=== PATIENT | male | born 1965 | race Hispanic/Latino ===

== ENCOUNTER 2024-01-26 18:22 | Inpatient (IN) | payer OTHER ==
[~2024-01-26] VITALS: Ht 177.8 cm; Wt 93.8 kg
[2024-01-26 18:57] LABS: HEMATOCRIT 47.4 % (42-54); MEAN CORPUSCULAR HEMOGLOBIN 28.2 pg (27.0-33.0); MEAN CORPUSCULAR HGB CONC 32.9 g/dL (32.0-36.0); MEAN CORPUSCULAR VOLUME 85.6 fL (79-99); RED BLOOD CELL COUNT(AUTO) 5.54 MIL/uL (4.50-6.20); RED CELL DISTRIBUTION WIDTH 12.2 % (11.0-15.5); WHITE BLOOD COUNT (AUTO) 9.2 K/uL (4.8-10.8)
[2024-01-26 19:16] LABS: ALBUMIN 3.5 g/dL (3.5-5.0); BILIRUBIN,TOTAL 0.2 mg/dL (0.2-1.0); CREATININE 1.3 mg/dL (0.5-1.3); POTASSIUM 3.9 mmol/L (3.5-5.1); TOTAL PROTEIN, SERUM 7.4 g/dL (6.0-8.3)
[2024-01-26 20:35] LABS: INR <= 0.93 (0.85-1.15); PROTHROMBIN TIME 10.9 SEC (9.6-11.6)
[2024-01-26 20:36] LABS: PARTIAL THROMBOPLASTIN TIME 28.1 SEC (26.3-35.5)
[2024-01-26] MEDS: ASPIRIN 325MG TAB PO ONE (22:25)
[2024-01-26] MEDS: 0.9%NACL 1000ML 1,000 ML IV ONE (22:25)
[2024-01-26] MEDS: INSULIN HUMULIN R 100 UNIT/ML 3ML IV ONE (22:28)
[2024-01-26] MEDS ORDERED: DEXTROSE 50%-WATER 50 ML DISP.SYRIN IV PRN (23:00)
[2024-01-26] MEDS ORDERED: MAGNESIUM 2GM PREMIX 50ML 50 ML IV PRN (23:00)
[2024-01-26] MEDS ORDERED: KCL 20 MEQ ERTAB PO PRN (23:00)
[2024-01-26] MEDS ORDERED: NITROGLYCERIN 0.4 MG SL TAB SL PRN (23:00)
[2024-01-26] MEDS ORDERED: ONDANSETRON 4MG INJ IV PRN (23:00)
[2024-01-26] MEDS ORDERED: POTASSIUM CHLORIDE 10% ELIXIR 20 MEQ/15 ML UDCUP PO PRN (23:00)
[2024-01-26] MEDS ORDERED: GLUCAGON 1MG KIT 1 MG ML IM PRN (23:00)
[2024-01-26] MEDS ORDERED: POTASSIUM CHLORIDE 20MEQ/100ML 100 ML IV PRN (23:00)
[2024-01-26] MEDS: DILTIAZEM 25MG INJ IVP ONE (23:51)
[2024-01-26] MEDS: 0.9%NACL 1000ML 1,000 ML IV SCH (23:51)
[2024-01-26] MEDS: METOPROLOL SUCCINATE 25 MG TAB.SR.24H PO ONE (23:51)
[2024-01-27] VITALS (10 sets, daily range): BP systolic 99–108; BP diastolic 52–69; PULSE 45–93; RESP 16–20; O2SAT 97–99
[2024-01-27 03:58] LABS: BASOPHILS # (AUTO) 0.03 K/uL (0.00-0.20); BASOPHILS % (AUTO) 0.3 % (0.0-5.0); EOSINOPHILS # (AUTO) 0.25 K/uL (0.00-0.70); EOSINOPHILS % (AUTO) 2.6 % (0.0-8.0); HEMATOCRIT 43.8 % (42-54); IMMATURE GRANULOCYTE ABSOLUTE 0.04 K/uL (0-1); LYMPHOCYTES # (AUTO) 2.5 K/uL (1.0-4.8); LYMPHOCYTES % (AUTO) 26.3 % (21.0-51.0); MEAN CORPUSCULAR HEMOGLOBIN 27.9 pg (27.0-33.0); MEAN CORPUSCULAR HGB CONC 32.9 g/dL (32.0-36.0); MEAN CORPUSCULAR VOLUME 84.7 fL (79-99); MONOCYTES # (AUTO) 0.8 K/uL (0.1-1.0); MONOCYTES % (AUTO) 8.7 % (3.0-13.0); NEUTROPHILS % (AUTO) 61.7 % (40.0-77.0); PLATELET COUNT (AUTO) 270 K/uL (130-400); RED BLOOD CELL COUNT(AUTO) 5.17 MIL/uL (4.50-6.20); RED CELL DISTRIBUTION WIDTH 12.4 % (11.0-15.5); WHITE BLOOD COUNT (AUTO) 9.7 K/uL (4.8-10.8)
[2024-01-27 04:20] LABS: ALBUMIN 3.2 g/dL (3.5-5.0); BILIRUBIN,TOTAL 0.4 mg/dL (0.2-1.0); POTASSIUM 4.5 mmol/L (3.5-5.1); THYROID STIMULATING HORMONE 1.65 uIU/mL (0.36-3.74); TOTAL PROTEIN, SERUM 6.6 g/dL (6.0-8.3)
[2024-01-27 05:55] LABS: AMPHET/METH SCREEN,URINE NEGATIVE (NEGATIVE); BARBITURATE SCREEN, URINE NEGATIVE (NEGATIVE); BENZODIAZEPINES SCREEN,URINE NEGATIVE (NEGATIVE); CANNABINOID SCREEN,URINE NEGATIVE (NEGATIVE); COCAINE SCREEN,URINE POSITIVE (NEGATIVE); OPIATE SCREEN,URINE NEGATIVE (NEGATIVE); PHENCYCLIDINE SCREEN,URINE NEGATIVE (NEGATIVE)
[2024-01-27 06:07] LABS: HEMOGLOBIN A1C 12.6 % (4.0-6.0)
[2024-01-27] MEDS: INSULIN HUMULIN R 100 UNIT/ML 3ML SQ SCH (06:34)
[2024-01-27] MEDS: FAMOTIDINE 20MG TAB PO SCH (07:41)
[2024-01-27] MEDS: ASPIRIN 81 MG EC TAB PO SCH (07:41)
[2024-01-27] MEDS: ENOXAPARIN SODIUM 40 MG/0.4 ML SYRINGE SQ SCH (07:42)
[2024-01-27] MEDS: ACETAMINOPHEN 325 MG TAB PO ONE (21:52)
[2024-01-28 00:45] VITALS: BP 115/74; PULSE 78; RESP 18
[2024-01-28 03:45] VITALS: BP 123/83; PULSE 78; RESP 18
[2024-01-28 04:55] LABS: HEMATOCRIT 44.1 % (42-54); MEAN CORPUSCULAR HEMOGLOBIN 27.9 pg (27.0-33.0); MEAN CORPUSCULAR VOLUME 87.2 fL (79-99); RED BLOOD CELL COUNT(AUTO) 5.06 MIL/uL (4.50-6.20); RED CELL DISTRIBUTION WIDTH 12.5 % (11.0-15.5)
[2024-01-28 05:06] LABS: ALBUMIN 3.1 g/dL (3.5-5.0); BILIRUBIN,TOTAL 0.4 mg/dL (0.2-1.0); CREATININE 0.9 mg/dL (0.5-1.3); MAGNESIUM 1.9 mg/dL (1.80-2.40); POTASSIUM 3.6 mmol/L (3.5-5.1); TOTAL PROTEIN, SERUM 6.5 g/dL (6.0-8.3)
[2024-01-28] MEDS: REGADENOSON 0.4 MG/5 ML PF SYG IVP SCH (07:41)
[2024-01-28 08:12] VITALS: BP 124/86; PULSE 92; RESP 16
[2024-01-28 08:15] VITALS: O2SAT 97
[2024-01-28 12:09] VITALS: BP 116/62; PULSE 84; RESP 16
[2024-01-28] MEDS ORDERED: Nitroglycerin 0.4MG Sl Tab SL (13:55)
[2024-01-28] MEDS ORDERED: AEC81 PO (13:55)
[2024-01-28] MEDS ORDERED: NITR0.4T50 SL (13:56)
[2024-01-28 16:19] VITALS: BP 126/61; PULSE 83; RESP 16
[2024-01-28] MEDS ORDERED: METF-444 PO (17:24)
== END 2024-01-28 18:20 | disposition home or self-care (01) | DRG 310 ==
LOC: EDH 18:22 → EDHIP 18:23 → 2DH 01-27 00:16
PROVIDERS: ADMIT Internal Medicine; ATTEND Internal Medicine
DX: I48.91 Unspecified atrial fibrillation (principal); I48.92 Unspecified atrial flutter; E11.65 Type 2 diabetes mellitus with hyperglycemia; F17.210 Nicotine dependence, cigarettes, uncomplicated; I49.3 Ventricular premature depolarization; F14.10 Cocaine abuse, uncomplicated; R79.89 Other specified abnormal findings of blood chemistry; Z79.82 Long term (current) use of aspirin
CPT/HCPCS: 36415; 70450; 71045; 78452; 80053; 80061; 80305; 82948; 83036; 83735; 83880; 84443; 84484; 85025; 85027; 85610; 85730; 93005; 93017; 93306; 93356; 96374; 96375; A9500; G0378; J1650; J1815; J2785; J3490; J7030